=== PATIENT | female | born 1950 | race Caucasian/White ===

== ENCOUNTER 2019-07-15 15:16 | Emergency (ER) | payer OTHER ==
[~2019-07-15] VITALS: Ht 167.6 cm; Wt 63.5 kg
[2019-07-15 16:09] LABS: HEMATOCRIT 39.2 % (37.0-47.0); HEMOGLOBIN 13.6 gm/dL (12.0-15.0); MCH 31.7 pg (26.0-34.0); MCHC 34.8 g/dL (28.0-37.0); MCV 91.3 fL (80.0-100.0); PLATELET COUNT 95 thou/uL (150-400); RBC 4.29 mil/uL (4.20-5.00); RDW 12.5 % (10.5-14.5)
[2019-07-15 16:11] LABS: URINE BILIRUBIN NEGATIVE (Negative); URINE BLOOD NEGATIVE (Negative); URINE CLARITY CLEAR; URINE COLOR YELLOW; URINE GLUCOSE-RANDOM* NEGATIVE (Negative); URINE KETONES 1+ (Negative); URINE LEUKOCYTES-REFLEX NEGATIVE (Negative); URINE NITRITE-REFLEX NEGATIVE (Negative); URINE PROTEIN (DIPSTICK) TRACE (Negative); URINE SPECIFIC GRAVITY >= 1.030 (1.005-1.035); URINE UROBILINOGEN 0.2 E.U./dl (0.2-1.0)
[2019-07-15 16:15] LABS: WBC 1.6 thou/uL (4.0-11.0)
[2019-07-15 16:16] LABS: CALCIUM 8.1 mg/dL (8.5-10.1); CREATININE 0.8 mg/dL (0.6-1.0); POTASSIUM 3.8 mmol/L (3.5-5.1)
[2019-07-15 16:24] LABS: ALBUMIN 3.7 g/dL (3.4-5.0); TOTAL BILIRUBIN 0.3 mg/dL (<0.1-1.0); TOTAL PROTEIN 6.8 g/dL (6.4-8.2)
[2019-07-15 17:04] LABS: ABSOLUTE NEUTROPHILS 0.9 thou/uL (1.4-8.2); ATYPICAL LYMPHS 2 %
[2019-07-15] MEDS ORDERED: VIBRAMYCIN 100100 MG PO (17:09)
[2019-07-15] MEDS ORDERED: ZOFRAN ODT4 MG PO (17:09)
[2019-07-15 17:41] VITALS: BP 110/65
[2019-07-18 17:07] LABS: LYME ANTIBODY SCREEN* <0.91 ISR (0.00-0.90)
== END 2019-07-15 17:41 | disposition home or self-care (01) ==
LOC: ER 15:16
PROVIDERS: Emergency Medicine
DX: R10.13 Epigastric pain (principal); R19.7 Diarrhea, unspecified; R53.81 Other malaise; D69.6 Thrombocytopenia, unspecified; D72.819 Decreased white blood cell count, unspecified; R50.9 Fever, unspecified